=== PATIENT | female | born 1935 | race Caucasian/White ===

== ENCOUNTER 2017-10-13 09:18 | Emergency (ER) | payer MEDICARE ==
[2017-10-13 09:30] VITALS: RESP 18
--- NOTE | 2017-10-13 09:47 | ED ---
General Adult HPI - General Chief complaint: Fall Stated complaint: Fall Time Seen by Provider: 10/13/17 09:34 Source: patient, RN notes reviewed Mode of arrival: wheelchair Limitations: no limitations - History of Present Illness Initial comments: Patient is a very pleasant 81-year-old female presenting to the emergency department with left leg pain. Patient states yesterday while in balance class she fell. Patient was doing a balance activity with a chair. Patient complains of discomfort of her left lower femur. Patient states discomfort is mild but increases with attempted ambulation. Patient states she was supposed to take a flight today however feels this may be too difficult. No head injury or loss of consciousness. No weakness. Patient does have history of left femur fracture back in 1963. - Related Data Home Medications Medication Instructions Recorded Confirmed Aspirin [Adult Low Dose Aspirin EC] 81 mg PO MOWEFR@1700 10/13/17 10/13/17 Calcium Carbonate [Calcium] 600 mg PO DAILY 10/13/17 10/13/17 Cholecalciferol [Vitamin D3] 1,000 unit PO HS 10/13/17 10/13/17 Cyanocobalamin (Vitamin B-12) 1,000 mcg PO DAILY 10/13/17 10/13/17 [Vitamin B-12] Furosemide [Lasix] 20 mg PO DAILY 10/13/17 10/13/17 Glucosamine Sulfate 500 mg PO DAILY 10/13/17 10/13/17 Ibandronate Sodium [Boniva] 150 mg PO QMONTH 10/13/17 10/13/17 Lisinopril [Zestril] 10 mg PO BID 10/13/17 10/13/17 Methylsulfonylmethane [MSM] 1,000 mg PO DAILY 10/13/17 10/13/17 Metoprolol Tartrate [Lopressor] 25 mg PO BID 10/13/17 10/13/17 PARoxetine [Paxil] 20 mg PO DAILY 10/13/17 10/13/17 Vit C/E/Zn/Coppr/Lutein/Zeaxan 1 cap PO DAILY 10/13/17 10/13/17 [Preservision Areds 2 Softgel] amLODIPine [Norvasc] 10 mg PO HS 10/13/17 10/13/17 Previous Rx's Medication Instructions Recorded Hydrocodone/Acetaminophen [[place] 1 each PO Q4HR PRN #12 tab 10/13/17 5325] Allergies Allergy/AdvReac Type Severity Reaction Status Date / Time cephalexin [From Keflex] Allergy Rash/Hives Verified 10/13/17 10:46 Review of Systems ROS Statement: Those systems with pertinent positive or pertinent negative responses have been documented in the HPI. ROS Other: All systems not noted in ROS Statement are negative. Constitutional: Denies: fever Eyes: Denies: eye pain ENT: Denies: ear pain Respiratory: Denies: cough Cardiovascular: Denies: chest pain Endocrine: Denies: fatigue Gastrointestinal: Denies: abdominal pain Genitourinary: Denies: dysuria Musculoskeletal: Denies: back pain Skin: Denies: rash Neurological: Denies: weakness Past Medical History Past Medical History: Hypertension, Pulmonary Embolus (PE) History of Any Multi-Drug Resistant Organisms: C-DIFF Date of last positivie culture/infection: 2015 Past Surgical History: Orthopedic Surgery Additional Past Surgical History / Comment(s): right hip and knee, left femur fracture 1963, rib fractures Past Psychological History: Depression Smoking Status: Never smoker Past Alcohol Use History: Occasional Past Drug Use History: None Reported General Exam Limitations: no limitations General appearance: alert, in no apparent distress Head exam: Present: atraumatic, normocephalic Eye exam: Present: normal appearance Neck exam: Present: normal inspection. Absent: tenderness Respiratory exam: Present: normal lung sounds bilaterally Cardiovascular Exam: Present: regular rate, normal rhythm Expanded Peripheral pulses: 2+: Dorsalis Pedis (L) GI/Abdominal exam: Present: soft. Absent: tenderness Extremities exam: Present: tenderness (Minimal tenderness left lower femur. Mild tenderness left knee with mild effusion. Distally the extremity is neurovascularly intact.). Absent: calf tenderness Neurological exam: Present: alert Psychiatric exam: Present: normal affect, normal mood Skin exam: Present: normal color Course Vital Signs 10/13/17 09:23 Temperature 98 F Pulse Rate 57 L Respiratory 18 Rate Blood Pressure 142/62 O2 Sat by Pulse 100 Oximetry Medical Decision Making - Medical Decision Making Patient reevaluated and updated. - Radiology Data Radiology results: image reviewed (X-ray of the left femur and left knee shows no acute fracture. Old fracture. Arthritic changes.) Disposition Clinical Impression: Fall, Knee strain Disposition: HOME SELF-CARE Condition: Stable Instructions: Fall Prevention for Older Adults (ED), Swollen Knee Joint (ED), Osteoarthritis (ED), Knee Sprain (ED) Additional Instructions: Please follow-up with primary care physician in the next couple of days for recheck. Please also follow-up with your orthopedic physician. Ice. Return for increased pain, redness, swelling, fever, worsening symptoms or other concerns. Prescriptions: Hydrocodone/Acetaminophen [[place] 5-325] 1 each PO Q4HR PRN #12 tab PRN Reason: Pain Referrals: Acosta Whitaker MD [Primary Care Provider] - 1-2 days Time of Disposition: 11:44
--- NOTE | 2017-10-13 11:14 | XR ---
EXAMINATION TYPE: XR knee complete LT, XR femur LT DATE OF EXAM: 10/13/2017 CLINICAL HISTORY: Left knee pain. TECHNIQUE: Two views of the left femur are obtained. 3 views of the left knee were obtained. COMPARISON: None FINDINGS: There is no acute fracture or dislocation seen in the left femur or left knee. Extensive t ricompartmental arthropathy is seen as marginal osteophytes, joint space narrowing, [id number] willa culation of the medial compartment, and opposing surface sclerosis. Small suprapatellar joint effusio n is noted. There is diffuse osseous demineralization. Extensive hypertrophic osseous changes are seen of the greater tuberosity around the acetabulum as we ll as the femoral head. [id number] articulation of the femoral acetabular joint are seen. Prior fra cture deformity with multiple transcortical screws are present of the left mid femoral diaphysis. No gross evidence of fracture. IMPRESSION: 1. No evidence of fracture or dislocation of the left femur or knee. 2. 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 3. Fracture deformity of the left mid femoral diaphysis. 4. Generalized osseous demineralization.
[2017-10-13] MEDS ORDERED: HYDROcodone/APAP 5-325MG 1 EACH TAB PO STA (11:42)
[2017-10-13 11:55] VITALS: BP 138/62; PULSE 87; TEMP 97.7
== END 2017-10-13 11:55 | disposition home or self-care (01) ==
LOC: EC 09:18
DX: S86.912A Strain of unspecified muscle(s) and tendon(s) at lower leg level, left leg, initial encounter (principal); M25.462 Effusion, left knee; M16.12 Unilateral primary osteoarthritis, left hip; M17.12 Unilateral primary osteoarthritis, left knee; I10 Essential (primary) hypertension; F32.9 Major depressive disorder, single episode, unspecified; Z79.82 Long term (current) use of aspirin; Z79.899 Other long term (current) drug therapy; Z88.1 Allergy status to other antibiotic agents; Z87.81 Personal history of (healed) traumatic fracture; W19.XXXA Unspecified fall, initial encounter; Y93.89 Activity, other specified; Y92.89 Other specified places as the place of occurrence of the external cause
CPT/HCPCS: 73552; 73562; 99283; L1830 ×2

== ENCOUNTER 2020-03-04 11:24 | Inpatient (IN) | payer MEDICARE ==
--- NOTE | 2020-03-04 12:06 | ED ---
General Adult HPI - General Chief complaint: Shortness of Breath Stated complaint: low oxygen Time Seen by Provider: 03/04/20 11:35 Source: patient, RN notes reviewed, old records reviewed Mode of arrival: wheelchair Limitations: no limitations - History of Present Illness Initial comments: 84-year-old female history of CHF, atrial fibrillation, pulmonary embolism presenting with dyspnea which has been chronic and ongoing. This has worsened over the past several weeks. 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 She is currently on Lasix taking 10 mg daily. She does not like to take this medication because it increases her urinary incontinence. She denies fever. She denies significant cough. Denies central chest pain. She does report bilateral lower extremity edema, she has an Unna boot on her left lower extremity. She follows with podiatry on a regular basis. - Related Data Home Medications Medication Instructions Recorded Confirmed Aspirin [Adult Low Dose Aspirin EC] 81 mg PO MOWEFR@1700 10/13/17 10/13/17 Calcium Carbonate [Calcium] 600 mg PO DAILY 10/13/17 10/13/17 Cholecalciferol [Vitamin D3] 1,000 unit PO HS 10/13/17 10/13/17 Cyanocobalamin (Vitamin B-12) 1,000 mcg PO DAILY 10/13/17 10/13/17 [Vitamin B-12] Furosemide [Lasix] 20 mg PO DAILY 10/13/17 10/13/17 Glucosamine Sulfate 500 mg PO DAILY 10/13/17 10/13/17 Ibandronate Sodium [Boniva] 150 mg PO QMONTH 10/13/17 10/13/17 Lisinopril [Zestril] 10 mg PO BID 10/13/17 10/13/17 Methylsulfonylmethane [MSM] 1,000 mg PO DAILY 10/13/17 10/13/17 Metoprolol Tartrate [Lopressor] 25 mg PO BID 10/13/17 10/13/17 PARoxetine [Paxil] 20 mg PO DAILY 10/13/17 10/13/17 Vit C/E/Zn/Coppr/Lutein/Zeaxan 1 cap PO DAILY 10/13/17 10/13/17 [Preservision Areds 2 Softgel] amLODIPine [Norvasc] 10 mg PO HS 10/13/17 10/13/17 Previous Rx's Medication Instructions Recorded Hydrocodone/Acetaminophen [[place] 1 each PO Q4HR PRN #12 tab 10/13/17 5-325] Allergies Allergy/AdvReac Type Severity Reaction Status Date / Time cephalexin [From Keflex] Allergy Rash/Hives Verified 03/04/20 11:33 Review of Systems ROS Statement: Those systems with pertinent positive or pertinent negative responses have been documented in the HPI. ROS Other: All systems not noted in ROS Statement are negative. Past Medical History Past Medical History: Hypertension, Pulmonary Embolus (PE) History of Any Multi-Drug Resistant Organisms: C-DIFF Date of last positivie culture/infection: 2015 Past Surgical History: Orthopedic Surgery Additional Past Surgical History / Comment(s): right hip and knee, left femur fracture 1963, rib fractures Past Psychological History: Depression Smoking Status: Never smoker Past Alcohol Use History: Daily Past Drug Use History: None Reported General Exam Limitations: no limitations General appearance: alert, in no apparent distress Head exam: Present: atraumatic, normocephalic Eye exam: Present: normal appearance, PERRL ENT exam: Present: normal exam Neck exam: Present: normal inspection. Absent: tenderness, meningismus Respiratory exam: Present: respiratory distress, rales, decreased breath sounds Cardiovascular Exam: Present: tachycardia, irregular rhythm GI/Abdominal exam: Present: soft. Absent: distended, tenderness, guarding Extremities exam: Present: pedal edema Neurological exam: Present: alert, oriented X3, CN II-XII intact. Absent: motor sensory deficit Psychiatric exam: Present: normal affect, normal mood Skin exam: Present: warm, dry, intact. Absent: cyanosis, diaphoretic Course Vital Signs 03/04/20 03/04/20 03/04/20 11:29 12:14 12:17 Temperature 97.3 F L 97.9 F Pulse Rate 102 H 98 Respiratory 20 18 18 Rate Blood Pressure 152/94 138/98 O2 Sat by Pulse 98 99 Oximetry EKG Findings - EKG Comments: EKG Findings:: EKG: Atrial fibrillation, with RVR, rate of 106, left anterior fascicular block, no ST segment elevation, QRS duration 78, QTC 488. Medical Decision Making - Medical Decision Making 84-year-old female with dyspnea, lower extremity edema. Chest x-ray confirming CHF, bilateral effusions. Patient has significantly elevated BNP at 6190. She has normal electrolytes, stable hemoglobin. EKG showing atrial fibrillation. Patient is anticoagulated. Will be admitted for diuresis. Case discussed with Dr. Whitaker he will admitted with cardiology on consult. - Lab Data Result diagrams: 03/04/20 12:10 03/04/20 12:10 Lab Results 03/04/20 03/04/20 03/04/20 Range/Units 12:10 12:10 12:10 WBC 6.1 (3.8-10.6) k/uL RBC 4.05 (3.80-5.40) m/uL Hgb 13.4 (11.4-16.0) gm/dL Hct 41.7 (34.0-46.0) % MCV 103.1 H (80.0-100.0) fL MCH 33.1 (25.0-35.0) pg MCHC 32.1 (31.0-37.0) g/dL RDW 15.3 (11.5-15.5) % Plt Count 211 (150-450) k/uL Neutrophils % 79 % Lymphocytes % 10 % Monocytes % 6 % Eosinophils % 1 % Basophils % 0 % Neutrophils # 4.8 (1.3-7.7) k/uL Lymphocytes # 0.6 L (1.0-4.8) k/uL Monocytes # 0.4 (0-1.0) k/uL Eosinophils # 0.1 (0-0.7) k/uL Basophils # 0.0 (0-0.2) k/uL Macrocytosis Slight PT 11.1 (9.0-12.0) sec INR 1.1 (<1.2) APTT 24.9 (22.0-30.0) sec Sodium 136 L (137-145) mmol/L Potassium 4.6 (3.5-5.1) mmol/L Chloride 103 (98-107) mmol/L Carbon Dioxide 24 (22-30) mmol/L Anion Gap 9 mmol/L BUN 16 (7-17) mg/dL Creatinine 0.74 (0.52-1.04) mg/dL Est GFR (CKD-EPI)AfAm 86 (>60 ml/min/1.73 sqM) Est GFR (CKD-EPI)NonAf 75 (>60 ml/min/1.73 sqM) Glucose 100 H (74-99) mg/dL Plasma Lactic Acid Richar (0.7-2.0) mmol/L Calcium 9.2 (8.4-10.2) mg/dL Magnesium 2.0 (1.6-2.3) mg/dL Total Bilirubin 1.2 (0.2-1.3) mg/dL AST 49 H (14-36) U/L ALT 35 H (4-34) U/L Alkaline Phosphatase 148 H (38-126) U/L Troponin I (0.000-0.034) ng/mL NT-Pro-B Natriuret Pep pg/mL Total Protein 6.4 (6.3-8.2) g/dL Albumin 4.0 (3.5-5.0) g/dL 03/04/20 03/04/20 03/04/20 Range/Units 12:10 12:10 12:10 WBC (3.8-10.6) k/uL RBC (3.80-5.40) m/uL Hgb (11.4-16.0) gm/dL Hct (34.0-46.0) % MCV (80.0-100.0) fL MCH (25.0-35.0) pg MCHC (31.0-37.0) g/dL RDW (11.5-15.5) % Plt Count (150-450) k/uL Neutrophils % % Lymphocytes % % Monocytes % % Eosinophils % % Basophils % % Neutrophils # (1.3-7.7) k/uL Lymphocytes # (1.0-4.8) k/uL Monocytes # (0-1.0) k/uL Eosinophils # (0-0.7) k/uL Basophils # (0-0.2) k/uL Macrocytosis PT (9.0-12.0) sec INR (<1.2) APTT (22.0-30.0) sec Sodium (137-145) mmol/L Potassium (3.5-5.1) mmol/L Chloride (98-107) mmol/L Carbon Dioxide (22-30) mmol/L Anion Gap mmol/L BUN (7-17) mg/dL Creatinine (0.52-1.04) mg/dL Est GFR (CKD-EPI)AfAm (>60 ml/min/1.73 sqM) Est GFR (CKD-EPI)NonAf (>60 ml/min/1.73 sqM) Glucose (74-99) mg/dL Plasma Lactic Acid Richar 1.1 (0.7-2.0) mmol/L Calcium (8.4-10.2) mg/dL Magnesium (1.6-2.3) mg/dL Total Bilirubin (0.2-1.3) mg/dL AST (14-36) U/L ALT (4-34) U/L Alkaline Phosphatase (38-126) U/L Troponin I 0.015 (0.000-0.034) ng/mL NT-Pro-B Natriuret Pep 6190 pg/mL Total Protein (6.3-8.2) g/dL Albumin (3.5-5.0) g/dL Disposition Clinical Impression: Congestive heart failure Disposition: ADMITTED IP TO THIS [facility] Condition: Stable Is patient prescribed a controlled substance at d/c from ED?: No Referrals: Acosta Whitaker MD [Primary Care Provider] - 1-2 days Decision to Admit Reason: Admit from EC Decision Date: 03/04/20 Decision Time: 13:44
[2020-03-04 12:24] LABS: Basophils % (A) 0 %; Eosinophils # (A) 0.1 k/uL (0-0.7); Eosinophils % (A) 1 %; HCT 41.7 % (34.0-46.0); HGB 13.4 gm/dL (11.4-16.0); Lymphocytes # (A) 0.6 k/uL (1.0-4.8); Lymphocytes % (A) 10 %; MCH 33.1 pg (25.0-35.0); MCHC 32.1 g/dL (31.0-37.0); MCV 103.1 fL (80.0-100.0); Macrocytosis Slight; Mean Platelet Volume 7.9; Monocytes # (A) 0.4 k/uL (0-1.0); Monocytes % (A) 6 %; Neutrophils # (A) 4.8 k/uL (1.3-7.7); Neutrophils % (A) 79 %; Platelet Count 211 k/uL (150-450); RBC 4.05 m/uL (3.80-5.40); RDW 15.3 % (11.5-15.5); WBC 6.1 k/uL (3.8-10.6)
[2020-03-04 12:37] LABS: INR 1.1 (<1.2); Partial Thromboplastin Time 24.9 sec (22.0-30.0); Prothrombin Time 11.1 sec (9.0-12.0)
--- NOTE | 2020-03-04 12:53 | XR ---
EXAMINATION TYPE: XR chest 2V DATE OF EXAM: 03/04/2020 COMPARISON: NONE HISTORY: Shortness of breath. TECHNIQUE: Frontal and lateral views of the chest are obtained. FINDINGS: There is cardiomegaly with small bilateral pleural effusions. There is associated bibasila r compressive atelectasis. Reticular interstitial prominence favors background chronic parenchymal ch fannie. The osseous structures are demineralized. IMPRESSION: Suspect CHF exacerbation is cardiomegaly with small bilateral pleural effusions. Correla te clinically. Background chronic parenchymal change is felt present.
[2020-03-04 12:57] LABS: Calcium 9.2 mg/dL (8.4-10.2); Potassium 4.6 mmol/L (3.5-5.1); Total Bilirubin 1.2 mg/dL (0.2-1.3); Total Protein 6.4 g/dL (6.3-8.2)
[2020-03-04] MEDS ORDERED: FUROSEMIDE 10 MG/ML 2 ML VIAL IV STA (13:13)
[2020-03-04] MEDS ORDERED: NALOXONE 0.4 MG/ML 1 ML VIAL IV PRN (13:42)
[2020-03-04] MEDS ORDERED: METOPROLOL SUCCINATE (ER) 50 MG TAB.ER.24H PO SCH (14:45)
--- NOTE | 2020-03-04 15:12 | P.HPIM ---
History of Present Illness H&P Date: 03/04/20 (Congestive heart failure, atrial fibrillation with rapid ventricular response) Chief Complaint: Short of breath, edema of the lower extremities for 10 days, AF History and physical date of service 03/04/2020 Chief complaint: Patient has shortness of breath and edema of the lower extremities for the last 10 days, seen in the cardiology office by Dr. Oglesby cardiology nurse practitioner in today and it clinic, they send diabetic to the emergency room with the hypoxemia and her pulse ox was 88 as well as increased heart rate with the atrial fib with rapid ventricular response. History of present illness: Patient has a started to feel sluggish week within the last 10 days and she found her legs become swelling and the left leg was getting yellow liquid I assume his serum, patient went to the low pressure kettle operator Dr. Newton however she was seen by his associated who did treat with Florentin bandage the left leg subsequently patient seen by Dr. Newton himself and he put a cast on her left leg light cast. Leg is swelling and still was short of breath, she called Dr Oglesby and seen by his nurse practitioner Mirian, she found that her pulse ox is low 88 and her heart rate was rapid response with the atrial And that she send her to the ER to be evaluated. Patient seen in the ER by Dr. Parsons and he found that she had underlying congestive heart failure, with the liver enzymes mild elevation a LT and AST with normal troponin and pro-BMP 6190 which is elevated as well her plasma lactic acid was normal 1.1. Patient also had normal WBC 6.1 normal hemoglobin and hematocrit however she had macrocytosis and that she has been taken vitamin B12 for that purpose. On admission vital sign indicating temperature 97.3 oral F her heart rate was between 107 and OT as well the EKG indicating atrial fib with rapid ventricular response blood pressure was 152/94 and 152/96 with a pulse ox on room air was 97 in the emergency room. Chest x-ray indicating congestive heart failure with exacerbation and cardiomegaly and small bilateral pleural effusion with the underlying background of chronic parenchymal changes. EKG: Indicating atrial fibrillation with rapid ventricular response with a heart rate 16 and a left anterior fascicular block. Review of system: Shortness of breath no expectoration no fever no chills episode no loss of smell or taste. Generalized weakness. Increase incontinent of the urine. No chest pain No GI symptoms No endocrine symptoms. She had history of anxiety/depression History of hypertension Fracture of the right lower leg and ankle in the past. Other systemic review of system has been negative. Smoking history never smoked in the past. Family history: , one daughter, No other family history available. Gen. physical exam. Patient is conscious alert oriented 3 no acute respiratory distress with the complaining of generalized weakness and heart rate was increased and has edema for 10 days of the lower extremities with pain of the legs was treated initially by the low pressure kettle operator. HEENT: Head normocephalic and atraumatic and pupil was equal reactive. Conjunctiva was pink sclerae was nonicteric, oropharynx , nose and ear was negative Neck was supple no JVD no thyromegaly no lymphadenopathy trachea midline. Chest lung was evaluated bilaterally and minimal rales on the basis in and pleural effusion as by the chest x-ray and hypoxemic at the cardiology office. Heart irregular irregularities within the atrial fib with rapid ventricular r esponse. Abdomen soft positive bowel sound no organomegaly enlargement . Genitourinary she has progressive incontinent however no pain with palpation in suprapubic area Lower extremities 1+ pitting edema on the right lower extremities, the left lower extremities on soft cast but still edematous Neurologically stable no tremors and no lateralizing sign cranial nerves II-12 is intact. Assessment: Atrial flutter with rapid ventricular response. Increased pro-BMP within mild increase in the liver enzyme, and chest x-ray indicating congestive heart failure acute, Dr. Stewart probably had had a pre vious echocardiogram at this time I don't know if it is only systolic over already diastolic) (Seen by the Dr. Oglesby cardiology. Plan: Patient admitted on the telemetry guarded etiology to follow consultation was requested. Started on diuresis orally with 30 mg twice a day. Increased her beta porfirio to metoprolol succinate 50 mg twice a day. However the cardiology will see her and we'll address any changes. We will start also small dose of FLORENTIN inhibitor. Patient probably on eliquis or Xarelto by the cardiology however the clarification from the cardiology. Past Medical History Past Medical History: Atrial Fibrillation, Heart Failure, Hypertension, Osteoarthritis (OA), Pulmonary Embolus (PE), Syncope Additional Past Medical History / Comment(s): L leg weeping-has compression dressing in place, osteoporosis, venous insufficiency, L leg limited ROM d/t fx/rodding, past bleeding ulcer. History of Any Multi-Drug Resistant Organisms: None Reported Date of last positivie culture/infection: 2015 Past Surgical History: Orthopedic Surgery Additional Past Surgical History / Comment(s): R total hip arthroplasty, R knee arthroplasty, 1963 L femur rodding, I&D R lower leg wound, D&C, bilateral cataract removals/blepharoplasty. Past Anesthesia/Blood Transfusion Reactions: No Reported Reaction Past Psychological History: Anxiety, Depression Additional Psychological History / Comment(s): Pt resides alone. She uses a walker to ambulate. She drives. Smoking Status: Former smoker Past Alcohol Use History: Daily Additional Past Alcohol Use History / Comment(s): Pt started smoking in 1952 and quit in 1957. Pt drinks one drink daily. Past Drug Use History: None Reported - Past Family History Father History Unknown: Yes Additional Family Medical History / Comment(s): Father in an industrial accident at the age of 65 yrs. Mother Family Medical History: No Reported History Additional Family Medical History / Comment(s): Mother was healthy and lived to be 97.5 yrs old. Medications and Allergies Home Medications Medication Instructions Recorded Confirmed Type Aspirin [Adult Low Dose Aspirin EC] 81 mg PO MOWEFR@1700 10/13/17 10/13/17 History Calcium Carbonate [Calcium] 600 mg PO DAILY 10/13/17 10/13/17 History Cholecalciferol [Vitamin D3] 1,000 unit PO HS 10/13/17 10/13/17 History Cyanocobalamin (Vitamin B-12) 1,000 mcg PO DAILY 10/13/17 10/13/17 History [Vitamin B-12] Furosemide [Lasix] 20 mg PO DAILY 10/13/17 10/13/17 History Glucosamine Sulfate 500 mg PO DAILY 10/13/17 10/13/17 History Hydrocodone/Acetaminophen [[place] 1 each PO Q4HR PRN #12 tab 10/13/17 Rx 5-325] Ibandronate Sodium [Boniva] 150 mg PO QMONTH 10/13/17 10/13/17 History Lisinopril [Zestril] 10 mg PO BID 10/13/17 10/13/17 History Methylsulfonylmethane [MSM] 1,000 mg PO DAILY 10/13/17 10/13/17 History Metoprolol Tartrate [Lopressor] 25 mg PO BID 10/13/17 10/13/17 History PARoxetine [Paxil] 20 mg PO DAILY 10/13/17 10/13/17 History Vit C/E/Zn/Coppr/Lutein/Zeaxan 1 cap PO DAILY 10/13/17 10/13/17 History [Preservision Areds 2 Softgel] amLODIPine [Norvasc] 10 mg PO HS 10/13/17 10/13/17 History Allergies Allergy/AdvReac Type Severity Reaction Status Date / Time cephalexin [From Keflex] Allergy Rash/Hives Verified 03/04/20 11:33 Physical Exam Vitals: Vital Signs Temp Pulse Resp BP Pulse Ox 03/04/20 14:12 98.8 F 107 H 152/96 97 03/04/20 12:17 97.9 F 98 18 138/98 99 03/04/20 12:14 18 03/04/20 11:29 97.3 F L 102 H 20 152/94 98 Intake and Output 03/03/20 03/04/20 03/04/20 22:59 06:59 14:59 Other: Weight 58.513 kg Results CBC & Chem 7: 03/04/20 12:10 03/04/20 12:10 Labs: Abnormal Lab Results - Last 24 Hours (Table) 03/04/20 03/04/20 Range/Units 12:10 12:10 MCV 103.1 H (80.0-100.0) fL Lymphocytes # 0.6 L (1.0-4.8) k/uL Sodium 136 L (137-145) mmol/L Glucose 100 H (74-99) mg/dL AST 49 H (14-36) U/L ALT 35 H (4-34) U/L Alkaline Phosphatase 148 H (38-126) U/L Thrombosis Risk Factor Assmnt - Choose All That Apply Any of the Below Risk Factors Present?: Yes Each Factor Represents 1 point: Heart failure (<1month), Swollen legs (current) Other Risk Factors: Yes Each Risk Factor Represents 3 Points: Age 75 years or older Other congenital or acquired thrombophilia - If yes, enter type in comment: No Thrombosis Risk Factor Assessment Total Risk Factor Score: 5 Thrombosis Risk Factor Assessment Level: High Risk
[2020-03-04] MEDS: FUROSEMIDE 40 MG TAB PO SCH (16:26)
[2020-03-04] MEDS ORDERED: ASPIRIN 81 MG PO SCH (17:00)
[2020-03-04] MEDS ORDERED: MELATONIN 5 MG TABLET PO PRN (17:59)
[2020-03-04] MEDS: APIXABAN 2.5 MG TABLET PO SCH (19:58)
[2020-03-04] MEDS ORDERED: CHOLECALCIFEROL 1,000 UNIT TAB PO SCH (21:00)
[2020-03-04] MEDS ORDERED: FUROSEMIDE 10 MG/ML 2 ML VIAL IV SCH (21:00)
[2020-03-04] MEDS: METOPROLOL TARTRATE 50 MG TAB PO SCH (22:31)
[2020-03-05] MEDS: METOPROLOL TARTRATE 50 MG TAB PO SCH (08:23)
[2020-03-05] MEDS: APIXABAN 2.5 MG TABLET PO SCH (08:23)
[2020-03-05] MEDS: FUROSEMIDE 40 MG TAB PO SCH (08:23)
[2020-03-05 08:26] VITALS: BP 142/73; PULSE 88; RESP 16; TEMP 97.6
[2020-03-05] MEDS ORDERED: LOSARTAN 50 MG TAB PO SCH (09:00)
[2020-03-05] MEDS ORDERED: PARoxetine 20 MG TAB PO SCH (09:00)
[2020-03-05] MEDS ORDERED: VIT A,C & E-LUTEIN-MINERALS 1 EACH TAB PO SCH (09:00)
--- NOTE | 2020-03-05 11:51 | ECHOF ---
Referral Reason:fluid overload, afib MEASUREMENTS -------- HEIGHT: 167.6 cm WEIGHT: 54.9 kg BP: 134/71 RVIDd: 3.1 cm (< 3.3) IVSd: 1.1 cm (0.6 - 1.1) LVIDd: 4.3 cm (3.9 - 5.3) LVPWd: 1.7 cm (0.6 - 1.1) IVSs: 1.6 cm LVIDs: 3.1 cm LVPWs: 1.8 cm LAESV Index (A-L): 59.03 ml/m Ao Diam: 3.1 cm (2.0 - 3.7) AV Cusp: 1.7 cm (1.5 - 2.6) MV EXCURSION: 15.184 mm (> 18.000) MV EF SLOPE: 70 mm/s (70 - 150) EPSS: 0.8 cm RAP: 5.00 mmHg RVSP: 34.29 mmHg FINDINGS -------- This was a technically good study. The left ventricular size is normal. There is moderate concentric left ventricular hypertrophy. O verall left ventricular systolic function is mild-moderately impaired with, an EF between 40 - 45 %. Both the mean atrial pressure as well as the LV end diastolic pressure is elevated {E/E'}. The right ventricle is normal in size. LA is severely dilated >40 ml/m2 The right atrium is mildly enlarged. Interatrial and interventricular septum intact. The aortic valve is trileaflet and appears structurally normal. There is mild aortic valve sclerosi s. There is no evidence of aortic regurgitation. There is no evidence of aortic stenosis. Moderate mitral regurgitation is present. Mild tricuspid regurgitation present. There is mild pulmonary hypertension. The right ventricular systolic pressure, as measured by Doppler, is 34.29mmHg. There is no pulmonic regurgitation present. The aortic root size is normal. Normal inferior vena cava with normal inspiratory collapse consistent with estimated right atrial pre ssure of 5 mmHg. There is no pericardial effusion. CONCLUSIONS -------- 1. This was a technically good study. 2. The left ventricular size is normal. 3. There is moderate concentric left ventricular hypertrophy. 4. Overall left ventricular systolic function is mild-moderately impaired with, an EF between 40 - 45 %. 5. Both the mean atrial pressure as well as the LV end diastolic pressure is elevated {E/E'}. 6. The right ventricle is normal in size. 7. LA is severely dilated >40 ml/m2 8. The right atrium is mildly enlarged. 9. Interatrial and interventricular septum intact. 10. The aortic valve is trileaflet and appears structurally normal. 11. There is mild aortic valve sclerosis. 12. There is no evidence of aortic regurgitation. 13. There is no evidence of aortic stenosis. 14. Moderate mitral regurgitation is present. 15. Mild tricuspid regurgitation present. 16. There is mild pulmonary hypertension. 17. The right ventricular systolic pressure, as measured by Doppler, is 34.29mmHg. 18. There is no pulmonic regurgitation present. 19. The aortic root size is normal. 20. Normal inferior vena cava with normal inspiratory collapse consistent with estimated right atrial pressure of 5 mmHg. 21. There is no pericardial effusion. [employer] SALES ASSISTANT: Josefa Santiago RDCS
--- NOTE | 2020-03-05 12:11 | P.CRDCN ---
History of Present Illness History of present illness: HISTORY OF PRESENTING ILLNESS This is a pleasant 84-year-old occasion female past medical history significant for any persistent atrial fibrillation, hypertension, history of pulmonary embol ism, dyslipidemia and chronic heart failure. She follows in the office with Dr. Oglesby. We have been asked to see in consultation for heart failure. She has been experiencing increased swelling and weeping from the left lower extremity over the previous one month. She was seen and evaluated by a dragline mechanic and Florentin bandage wrappings were applied to that leg. She states it is wrapping was applied the weeping has significantly subsided. She struggles with chronic shortness of breath according to the patient of unknown etiology. She went to the office yesterday and saw Mirian for routine visit. When she walked back to the exam room she was extremely dyspneic and pulse oximeter was obtained revealing an O2 saturation of 78%. According to the patient herself she states she did not feel any worsening shortness of breath from her baseline. On arrival to the emergency department EKG revealed she was in atrial fibrillation with mildly rapid rate at a heart rate of 106. Chest x-ray revealed bilateral pleural effusions, bibasilar compressive atelectasis and interstitial prominence suggestive of chronic parenchymal change. She was given one dose of IV Lasix 20 mg and started on Lasix 40 mg twice a day orally. She states she has been up to the bathroom every couple of hours since admission. She denies worsening exertional shortness of breath. She has no chest pain, dizziness or palpitations. Laboratory data reviewed, WBC 6.1, hemoglobin 13.4, platelets 211, d-dimer 0.79, sodium 136, potassium 4.6, creatinine 0.74, magnesium 2.0, AST 49, ALT 35, alkaline phosphatase 148, troponin negative 1 and NT proBNP 6190. Home medications include atorvastatin 20 mg on Monday and Monday, Eliquis 2.5 mg twice a day, losartan 50 mg daily, Lasix 10 mg daily and Lopressor 50 mg twice a day. Most recent echocardiogram obtained in the office June 2018 revealed preserved LV systolic function with ejection fraction 50% with moderate mitral regurgitation. Most recent stress test performed in the office July 2017 with a Lexiscan stress test revealing a partially reversible anterior apical defect. At that time cardiac catheterization was recommended however the patient opted for medical therapy. REVIEW OF SYSTEMS At the time of my exam: CONSTITUTIONAL: Denies fever or chills. CARDIOVASCULAR: Denies chest pain, shortness of breath, orthopnea, PND or palpitations. RESPIRATORY: Denies cough. GASTROINTESTINAL: Denies abdominal pain, diarrhea, constipation, nausea or vo miting. MUSCULOSKELETAL: Denies myalgias. NEUROLOGIC: Denies numbness, tingling or weakness. ENDOCRINE: Denies fatigue, weight change, polydipsia or polyurina. GENITOURINARY: Denies burning, hematuria or urgency with micturation. HEMATOLOGIC: Denies history of anemia or bleeding. PHYSICAL EXAMINATION Blood pressure 142/73 heart rate 88 afebrile and maintaining oxygen saturation on room air. CONSTITUTIONAL: No apparent distress. HEENT: Head is normocephalic. Pupils are equal, round. Sclerae anicteric. Mucous membranes of the mouth are moist. No JVD. No carotid bruit. CHEST EXAMINATION: Faint bibasilar rales. No wheezes or rhonchi. No chest wall tenderness is noted on palpation or with deep breathing. HEART EXAMINATION: Irregular rate and rhythm. S1, S2 heard. Systolic ejection murmur at the base, no gallops or rub. ABDOMEN: Soft, nontender. Positive bowel sounds. EXTREMITIES: 2+ peripheral pulses, 2+ pitting edema to the right lower extremity; FLORENTIN wrap in place to the left with edema noted in the toes and exposed portions of the left foot and leg and no calf tenderness. NEUROLOGIC EXAMINATION: Patient is awake, alert and oriented x3. ASSESSMENT Acute on chronic diastolic heart failure Hypoxia Chronic persistent atrial fibrillation Hypertension Dyslipidemia PLAN Increase activity and check room air pulse ox with activity. Obtain 2D echocardiogram and doppler study to assess cardiac structure and function. Continue with PO lasix at increased dose from home dose as she does not have an IV and does not want another once placed at this time. If primary wants to discharge her, that is ok with us as well. Follow up with Dr. Oglesby. Thank you kindly for this consultation. Nurse Practitioner note has been reviewed, I agree with a documented findings and plan of care. Patient was seen and examined. Past Medical History Past Medical History: Atrial Fibrillation, Heart Failure, Hypertension, Osteoarthritis (OA), Pulmonary Embolus (PE), Syncope Additional Past Medical History / Comment(s): L leg weeping-has compression dressing in place, osteoporosis, venous insufficiency, L leg limited ROM d/t fx/rodding, past bleeding ulcer. History of Any Multi-Drug Resistant Organisms: None Reported Date of last positivie culture/infection: 2015 Past Surgical History: Orthopedic Surgery Additional Past Surgical History / Comment(s): R total hip arthroplasty, R knee arthroplasty, 1963 L femur rodding, I&D R lower leg wound, D&C, bilateral cataract removals/blepharoplasty. Past Anesthesia/Blood Transfusion Reactions: No Reported Reaction Past Psychological History: Anxiety, Depression Additional Psychological History / Comment(s): Pt resides alone. She uses a walker to ambulate. She drives. Smoking Status: Former smoker Past Alcohol Use History: Daily Additional Past Alcohol Use History / Comment(s): Pt started smoking in 1952 and quit in 1957. Pt drinks one drink daily. Past Drug Use History: None Reported - Past Family History Father History Unknown: Yes Additional Family Medical History / Comment(s): Father in an industrial accident at the age of 65 yrs. Mother Family Medical History: No Reported History Additional Family Medical History / Comment(s): Mother was healthy and lived to be 97.5 yrs old. Medications and Allergies Home Medications Medication Instructions Recorded Confirmed Type Calcium Carbonate [Calcium] 600 mg PO DAILY 10/13/17 03/04/20 History Cholecalciferol [Vitamin D3] 2,000 unit PO HS 10/13/17 03/04/20 History Ibandronate Sodium [Boniva] 150 mg PO Q30D 10/13/17 03/04/20 History PARoxetine [Paxil] 20 mg PO DAILY 10/13/17 03/04/20 History Vit C/E/Zn/Coppr/Lutein/Zeaxan 1 cap PO DAILY 10/13/17 03/04/20 History [Preservision Areds 2 Softgel] Apixaban [Eliquis] 2.5 mg PO BID 03/04/20 03/04/20 History Atorvastatin [Lipitor] 20 mg PO MOFR 03/04/20 03/04/20 History Calcium Carbonate [Calcium] 600 mg PO MOWEFR 03/04/20 03/04/20 History Cyanocobalamin [Vitamin B-12] 500 mcg PO DAILY 03/04/20 03/04/20 History Furosemide [Lasix] 10 mg PO DAILY 03/04/20 03/04/20 History Glucosam/Eric-Msm1/C/[place]/Bosw 1 tab PO DAILY 03/04/20 03/04/20 History [Jpycrcfwtup-Issfbtplycm-GZP Tb] Losartan [Cozaar] 50 mg PO DAILY 03/04/20 03/04/20 History Melatonin 5 mg PO HS PRN 03/04/20 03/04/20 History Metoprolol Tartrate [Lopressor] 50 mg PO BID 03/04/20 03/04/20 History Vit C/E/Zn/Coppr/Lutein/Zeaxan 1 cap PO MOWEFR 03/04/20 03/04/20 History [Preservision Areds 2 Softgel] Allergies Allergy/AdvReac Type Severity Reaction Status Date / Time cephalexin [From Keflex] Allergy Rash/Hives Verified 03/04/20 15:12 Physical Exam Vitals: Vital Signs Temp Pulse Pulse Resp BP BP Pulse Ox 03/05/20 03:40 97.8 F 76 134/71 96 03/04/20 18:55 98.3 F 89 164/84 96 03/04/20 17:46 96.9 F L 99 18 130/88 98 03/04/20 16:13 87 137/99 03/04/20 14:12 98.8 F 107 H 152/96 97 03/04/20 12:17 97.9 F 98 18 138/98 99 03/04/20 12:14 18 03/04/20 11:29 97.3 F L 102 H 20 152/94 98 Intake and Output 03/04/20 03/05/20 03/05/20 22:59 06:59 14:59 Other: Voiding Method Toilet # Voids 4 4 Weight 55.1 kg Results 03/04/20 12:10 03/04/20 12:10 Cardiac Enzymes 03/04/20 03/04/20 Range/Units 12:10 12:10 AST 49 H (14-36) U/L Troponin I 0.015 (0.000-0.034) ng/mL Coagulation 03/04/20 Range/Units 12:10 PT 11.1 (9.0-12.0) sec APTT 24.9 (22.0-30.0) sec CBC 03/04/20 Range/Units 12:10 WBC 6.1 (3.8-10.6) k/uL RBC 4.05 (3.80-5.40) m/uL Hgb 13.4 (11.4-16.0) gm/dL Hct 41.7 (34.0-46.0) % Plt Count 211 (150-450) k/uL Comprehensive Metabolic Panel 03/04/20 Range/Units 12:10 Sodium 136 L (137-145) mmol/L Potassium 4.6 (3.5-5.1) mmol/L Chloride 103 (98-107) mmol/L Carbon Dioxide 24 (22-30) mmol/L BUN 16 (7-17) mg/dL Creatinine 0.74 (0.52-1.04) mg/dL Glucose 100 H (74-99) mg/dL Calcium 9.2 (8.4-10.2) mg/dL AST 49 H (14-36) U/L ALT 35 H (4-34) U/L Alkaline Phosphatase 148 H (38-126) U/L Total Protein 6.4 (6.3-8.2) g/dL Albumin 4.0 (3.5-5.0) g/dL Current Medications Generic Name Dose Route Start Last Admin Trade Name Freq PRN Reason Stop Dose Admin Apixaban 2.5 mg 03/04/20 21:00 03/04/20 19:58 Eliquis PO 2.5 mg BID CAITLIN Administration Aspirin 81 mg 03/04/20 17:00 03/04/20 17:06 Aspirin PO 81 mg MOWEFR@1700 CAITLIN Administration Atorvastatin Calcium 20 mg 03/06/20 09:00 Lipitor PO MOFR [facility] Calcium Carbonate/Glycine 500 mg 03/06/20 09:00 Tums PO MOWEFR CAITLIN Cholecalciferol 2,000 unit 03/04/20 21:00 03/04/20 19:58 Vitamin D3 (25 Mcg = 1000 Iu) PO 2,000 unit HS CAITLIN Administration Furosemide 40 mg 03/04/20 16:00 03/04/20 16:26 Lasix PO 40 mg BID@0900,1600 CAITLIN Administration Losartan Potassium 50 mg 03/05/20 09:00 Cozaar PO DAILY CAITLIN Melatonin 5 mg 03/04/20 17:59 03/04/20 22:32 Melatonin PO 5 mg HS PRN Administration Insomnia Metoprolol Tartrate 50 mg 03/04/20 23:00 03/04/20 22:31 Lopressor PO 50 mg BID CAITLIN Administration Multivitamins/Minerals 1 each 03/05/20 09:00 Ivite PO DAILY CAITLIN Naloxone HCl 0.2 mg 03/04/20 13:42 Narcan IV Q2M PRN Opioid Reversal Paroxetine HCl 20 mg 03/05/20 09:00 Paxil PO DAILY CAITLIN Intake and Output 03/04/20 03/05/20 03/05/20 22:59 06:59 14:59 Other: Voiding Method Toilet # Voids 4 4 Weight 55.1 kg 03/04/20 12:10 03/04/20 12:10
--- NOTE | 2020-03-05 13:18 | P.DS ---
Providers Date of admission: 03/04/20 13:42 Expected date of discharge: 03/05/20 Attending physician: Acosta Whitaker Consults: 03/04/20 13:43 Consult Physician Routine Consulting Provider: Esther Oglesby Consult Reason/Comments: CHF Do you want consulting provider notified?: Yes Primary care physician: Acosta Whitaker Discharge summary date of service 03/05/2020. Final diagnoses: #1 acute congestive heart failure, top of chronic with the underlying systolic and diastolic dysfunction with improvement of ejection fraction to 4045 percent and history of diastolic dysfunction. #2 atrial fibrillation with a rapid ventricular response resistant on admission. #3 persistent atrial fibrillation with controlled ventricular response on discharge. #4 bilateral edema of the lower extremities has been progressively improving with the diuresis of Lasix which increased to 40 mg twice a day tell seen in the office next week. #5 hyper lipidemia. #6 hypertension with hypertensive heart disease with the underlying left ventricular hypertrophy. #7 lung is clear with no shortness of breath clinically. Patient stable on discharge vital sign and temperature, ambulatory. ALLERGY: Keflex, cephalexin. Presentation to the emergency room: Patient was seen by nurse practitioner and at Dr. Oglesby office [place] nurse practitioner, and she sent her to the emergency room because of congestive heart failure and hypoxemia, however patient in the ER found her pulse ox on room air was normal, probably due to her cold hands. Hospital course: S patient seen in the ER by myself and adjusting the doses of the beta blockers as well as the diuretics patient did well overnight. Seen by Dr. Yuen power line installer, and he ordered echocardiogram disease with Doppler which found that her ejection fraction of the left ventricular hypertrophy diminished to 40-45% with the underlying acute on the top of chronic systolic implement, with a history of diastolic dysfunction was mentioned by the nurse of breath dictation who did see the patient on behalf of cardiology consultation. Patient did well, diuresed well and her lower extremities improved edema and along no rales and heart rate in the 80s controlled. On examination on the discharge: Patient conscious alert oriented 3 ambulatory and she using walker with wheels stable gait. HEENT was negative, she had a hearing aid bilateral, oropharynx is normal, pupil is equal reactive, Neck was supple no JVD no thyromegaly no lymphadenopathy trachea midline. Chest was clear to auscultation and percussion no wheezes no rales. Heart irregular irregularity disease with persistent atrial fibrillation currently on eliquis 2.5 mg twice a day better Dr. Oglesby Abdomen is soft positive bowel sounds no tenderness and she had a BM Extremities: Markedly improvement on the edema of the lower extremities. Neurologically: No lateralizing sign, cranial nerve is stable 2-12, no neuro deficit. Assessment: Currently stable general condition with the diuresis and control her heart rate She will be discharged today after clearance from the cardiology service. Plan: #1 continue cardiac diet. #2 follow-up with Dr. Oglesby her cardiology as outpatient in 1 week. #3 follow-up with Dr. Black next week, we'll be adjusting Lasix dose this, beta porfirio doses. Patient Condition at Discharge: Stable Plan - Discharge Summary Discharge Rx Participant: No New Discharge Prescriptions: New Furosemide [Lasix] 40 mg PO BID@0900,1600 tab Continue Cholecalciferol [Vitamin D3 (25 Mcg = 1000 Iu)] 2,000 unit PO HS Calcium Carbonate [Calcium] 600 mg PO DAILY Vit C/E/Zn/Coppr/Lutein/Zeaxan [Preservision Areds 2 Softgel] 1 cap PO DAILY PARoxetine [Paxil] 20 mg PO DAILY Ibandronate Sodium [Boniva] 150 mg PO Q30D Apixaban [Eliquis] 2.5 mg PO BID Atorvastatin [Lipitor] 20 mg PO MOFR Cyanocobalamin [Vitamin B-12] 500 mcg PO DAILY Glucosam/Eric-Msm1/C/[place]/Bosw [Ydtxjcvgrzi-Ngysfzyncyt-ZRC Tb] 1 tab PO DAILY Losartan [Cozaar] 50 mg PO DAILY Melatonin 5 mg PO HS PRN PRN Reason: Insomnia Metoprolol Tartrate [Lopressor] 50 mg PO BID Vit C/E/Zn/Coppr/Lutein/Zeaxan [Preservision Areds 2 Softgel] 1 cap PO MOWEFR Discontinued Calcium Carbonate [Calcium] 600 mg PO MOWEFR Furosemide [Lasix] 10 mg PO DAILY Discharge Medication List Calcium Carbonate [Calcium] 600 mg PO DAILY 10/13/17 [History] Cholecalciferol [Vitamin D3 (25 Mcg = 1000 Iu)] 2,000 unit PO HS 10/13/17 [History] Ibandronate Sodium [Boniva] 150 mg PO Q30D 01/26/18 [History] PARoxetine [Paxil] 20 mg PO DAILY 10/13/17 [History] Vit C/E/Zn/Coppr/Lutein/Zeaxan [Preservision Areds 2 Softgel] 1 cap PO DAILY 10/13/17 [History] Apixaban [Eliquis] 2.5 mg PO BID 03/04/20 [History] Atorvastatin [Lipitor] 20 mg PO MOFR 03/04/20 [History] Cyanocobalamin [Vitamin B-12] 500 mcg PO DAILY 03/04/20 [History] Glucosam/Eric-Msm1/C/[place]/Bosw [Lyswhwekuwz-Qdfoyenpnna-DDY Tb] 1 tab PO DAILY 03/04/20 [History] Losartan [Cozaar] 50 mg PO DAILY 03/04/20 [History] Melatonin 5 mg PO HS PRN 03/04/20 [History] Metoprolol Tartrate [Lopressor] 50 mg PO BID 03/04/20 [History] Vit C/E/Zn/Coppr/Lutein/Zeaxan [Preservision Areds 2 Softgel] 1 cap PO MOWEFR 03/04/20 [History] Furosemide [Lasix] 40 mg PO BID@0900,1600 tab 03/05/20 [Rx] Follow up Appointment(s)/Referral(s): Acosta Whitaker MD [Primary Care Provider] - 1-2 days
[2020-03-06] MEDS ORDERED: CALCIUM CARBONATE 500 MG CHEWABLE PO SCH (09:00)
[2020-03-06] MEDS ORDERED: ATORVASTATIN 20 MG TAB PO SCH (09:00)
== END 2020-03-05 14:37 | disposition home or self-care (01) | DRG 292 ==
LOC: EC 11:24 → 4SSUR 13:42
PROVIDERS: ADMIT Internal Medicine; ATTEND Internal Medicine
DX: I11.0 Hypertensive heart disease with heart failure (principal); I48.19 Other persistent atrial fibrillation; I48.92 Unspecified atrial flutter; J98.11 Atelectasis; D75.89 Other specified diseases of blood and blood-forming organs; E78.5 Hyperlipidemia, unspecified; F32.9 Major depressive disorder, single episode, unspecified; F41.9 Anxiety disorder, unspecified; I34.0 Nonrheumatic mitral (valve) insufficiency; I44.4 Left anterior fascicular block; I50.43 Acute on chronic combined systolic (congestive) and diastolic (congestive) heart failure; M81.0 Age-related osteoporosis without current pathological fracture; R32 Unspecified urinary incontinence; I87.2 Venous insufficiency (chronic) (peripheral); M19.90 Unspecified osteoarthritis, unspecified site; Z20.828 Contact with and (suspected) exposure to other viral communicable diseases; Z79.82 Long term (current) use of aspirin; Z79.899 Other long term (current) drug therapy; Z86.711 Personal history of pulmonary embolism; Z87.81 Personal history of (healed) traumatic fracture; Z87.891 Personal history of nicotine dependence; Z88.1 Allergy status to other antibiotic agents; Z96.641 Presence of right artificial hip joint; Z96.651 Presence of right artificial knee joint; Z98.42 Cataract extraction status, left eye; Z98.41 Cataract extraction status, right eye; Z96.1 Presence of intraocular lens
CPT/HCPCS: 36415; 71046; 80053; 83605; 83735; 83880; 84484; 85025; 85379; 85610; 85730; 93005; 93306; 96374; 99285